=== PATIENT | male | born 1980 | race African-American/Black ===

== ENCOUNTER 2017-11-01 19:49 | Emergency (ER) | payer BC, SELFPAY ==
--- NOTE | 2017-11-01 20:34 | RAD ---
CHEST TWO VIEWS: 11/01/17 HISTORY: Chest pain. COMPARISON: None. FINDINGS: Normal cardiac silhouette. The pulmonary vessels and hilum are normal. No consolidation or mass. No p neumothorax or osseous abnormalities. IMPRESSION: No acute cardiopulmonary process. POS: [facility]
--- NOTE | 2017-11-26 22:41 | EKG ---
Test Reason : CHEST PAIN Blood Pressure : / mmHG Vent. Rate : 095 BPM Atrial Rate : 095 BPM P-R Int : 154 ms QRS Dur : 080 ms QT Int : 324 ms P-R-T Axes : 036 036 000 degrees QTc Int : 407 ms Normal sinus rhythm Normal ECG Confirmed by OSCAR LEAL ([id number]), editorial specialist GIGI MODI ([id number]) on 11/26/2017 10:40:28 PM Referred By: Confirmed By:OSCAR LEAL
== END 2017-11-01 22:11 | disposition left against medical advice (07) ==
LOC: ERS 19:49
DX: Z53.21 Procedure and treatment not carried out due to patient leaving prior to being seen by health care provider (principal)
CPT/HCPCS: 71046; 87804; 93005